=== PATIENT | male | born 1935 | race Caucasian/White ===

== ENCOUNTER 2020-12-24 09:19 | Emergency (ER) | payer MEDICARE, MEDICAID ==
[~2020-12-24] VITALS: Ht 165.1 cm; Wt 55.0 kg
[~2020-12-24 09:19] MED LIST: ATROPINE SULFATE 1MG/10ML SYR ONE; CALCIUM CHLORIDE 1GM/10ML SYR IV ONE; DEXTROSE 50% WATER 50ML SYRINGE IV ONE; EPINEPHRINE 0.1MG/ML (1:10,000) 10ML SYR ONE; SODIUM BICARBONATE 8.4% 1 MEQ/ML 50ML SYR IV ONE
[2020-12-24] MEDS ORDERED: VANCOMYCIN 1 G PREMIX 200 ML IV ONE (09:30)
[2020-12-24] MEDS ORDERED: PIPERACILLIN/TAZ 3.375G PREMIX 50 ML IV ONE (09:30)
[2020-12-24] MEDS ORDERED: PROPOFOL 10MG/ML 100ML 100 ML IV ONE (09:45)
[2020-12-24] MEDS ORDERED: NOREPINEPHRINE 8MG/250ML PMX 250 ML IV ONE (10:06)
[2020-12-24 10:16] LABS: MEAN CORPUSCULAR HEMOGLOBIN 18.4 pg (28.0-32.0); MEAN CORPUSCULAR VOLUME 65.1 fL (80.0-94.0); MEAN PLATELET VOLUME 8.1 fl (7.4-10.4); PLATELET 231 x1000/uL (130-400); RED BLOOD CELL COUNT 3.03 mill/uL (4.7-6.1); RED CELL DISTRIBUTION WIDTH 20.1 % (11.6-14.6)
[2020-12-24 10:24] LABS: CHLORIDE 92 mEq/L (98-107)
[2020-12-24 10:29] LABS: HEMATOCRIT. 19.7 % (42.0-52.0); HEMOGLOBIN. 5.6 g/dL (14.0-18.0)
[2020-12-24 10:32] LABS: CREATINE KINASE 602 IU/L (39-308)
[2020-12-24 10:34] LABS: D-DIMER 9.97 mg/L FEU (<0.50); INR 2.2; PROTHROMBIN TIME 21.9 sec (9.6-11.0)
[2020-12-24] MEDS ORDERED: DOPAMINE 400MG/250ML PREMIX 250 ML IV ONE (10:41)
[2020-12-24 10:48] LABS: NUCLEATED RED BLOOD CELLS 5 /100 WBC; PLATELET ESTIMATE NORMAL
[2020-12-24 10:56] LABS: CLARITY URINE CLOUDY (CLEAR); COLOR URINE DARK YELLOW (YELLOW); KETONES URINE TRACE (NEGATIVE); LEUKOCYTE ESTERASE URINE NEGATIVE (NEGATIVE); NITRITE URINE NEGATIVE (NEGATIVE); OCCULT BLOOD URINE 3+ (NEGATIVE); PROTEIN URINE 1+ (NEGATIVE); SPECIFIC GRAVITY URINE 1.017 (1.005-1.030)
[2020-12-24 11:04] LABS: BG BASE EXCESS -22.2 mmol/L (-2.0-2.0); BG CARBOXYHEMOGLOBIN 1.1 % (0.5-1.5); BG HCO3 ACT 8.1 mmol/L (22.0-26.0); BG METHEMOGLOBIN 1.1 % (0.0-1.5); BG OXYHEMOGLOBIN 96.8 % (94.0-97.0); BG PCO2 39.1 mmHg (35.0-45.0); BG PH 6.934 (7.350-7.450); BG PO2 258.1 mmHg (75.0-100.0); BG SAMPLE SITE LEFT FEMORAL; BG TOTAL HEMOGLOBIN 5.8 g/dL (12.0-18.0); BG VENT MODE VENT - AC
[2020-12-24] MEDS ORDERED: SODIUM BICARBONATE 150 MEQ in DEXTROSE 5% WATER 1,000 ML IV SCH (12:00)
[2020-12-24] MEDS ORDERED: EPINEPHRINE 5 MG in SODIUM CHLORIDE 0.9% 245 ML IV STA ×2 (12:01→12:08)
[2020-12-24] MEDS ORDERED: MIDAZOLAM HCL 100 MG in DEXT 5% WATER 80 ML IV ONE (12:30)
[2020-12-24] MEDS ORDERED: FENTANYL CITRATE/PF 50MCG/ML 2ML VIAL IV ONE (12:30)
[2020-12-24] MEDS ORDERED: FENTANYL CITRATE/PF 500 MCG in SODIUM CHLORIDE 0.9% 40 ML IV STA (12:33)
[2020-12-24] MEDS ORDERED: FENTANYL CITRATE 2,500 MCG in SODIUM CHLORIDE 0.9% 200 ML IV PRN (12:45)
[2020-12-24] MEDS ORDERED: MIDAZOLAM HCL 100 MG in SODIUM CHLORIDE 0.9% 100 ML IV PRN (12:45)
[2020-12-24] MEDS ORDERED: MIDAZOLAM HCL 100 MG in DEXT 5% WATER 80 ML IV SCH (12:45)
[2020-12-24 13:41] VITALS: BP 50/20
== END 2020-12-24 14:48 ==
LOC: ER 09:42 → CANBEDREQ 14:44 → ER 14:48
DX: J18.9 Pneumonia, unspecified organism (principal); J96.90 Respiratory failure, unspecified, unspecified whether with hypoxia or hypercapnia; I46.9 Cardiac arrest, cause unspecified; K92.2 Gastrointestinal hemorrhage, unspecified; D64.9 Anemia, unspecified; E11.9 Type 2 diabetes mellitus without complications; R51.9 Headache, unspecified; I10 Essential (primary) hypertension; Z99.11 Dependence on respirator [ventilator] status; Z86.73 Personal history of transient ischemic attack (TIA), and cerebral infarction without residual deficits
CPT/HCPCS: 31500; 36415; 36556; 36600; 70450; 71045; 80053; 81003; 82375; 82550; 82728; 82805; 82962; 83605; 83615; 84145; 84484; 85025; 85379; 85384; 85610; 86140; 86850; 86900; 86901; 86920; 87040; 87086; 93005; 94640; 94660; 96365; 96366; 96368; 96375; 99291; J0461; J1265; J2543; J2704; J3370; J3490; J7040; J7050; 94002; J2250; J3010; J7060; J7070; P9016